=== PATIENT | female | born 1990 | race Caucasian/White ===

== ENCOUNTER 2017-05-27 05:39 | Inpatient (IN) | payer OTHER ==
[2017-05-27] VITALS (9 sets, daily range): BP systolic 114–143; BP diastolic 58–82
[~2017-05-27] VITALS: Ht 167.6 cm; Wt 74.1 kg
[~2017-05-27 05:39] MED LIST: LEVOTHYROXINE75 MCG PO; Motrin PO; Percocet 5/325,Endoc PO
[2017-05-27] MEDS ORDERED: ENDOCET 5-3251 EACH PO (08:21)
[2017-05-27] MEDS ORDERED: IBUPROFEN800 MG PO (08:21)
[2017-05-28] VITALS (7 sets, daily range): BP systolic 112–139; BP diastolic 64–80
[2017-05-28 07:18] LABS: EOSINOPHIL (%) 1.5 % (0-5); EOSINOPHIL COUNT 0.2 K/uL (0-0.3); HEMATOCRIT 26.7 % (36.0-46.0); IMMATURE GRANULOCYTE (%) 0.9 % (0.0-0.7); IMMATURE GRANULOCYTE COUNT 0.1 K/uL; INSTRUMENT ABS NEUTROPHIL CT 6.6 K/uL; LYMPHOCYTE COUNT 3.2 K/uL (1.0-2.8); MCH 29.6 PG (29.0-34.0); MCV 89.9 FL (83-99); MEAN PLAT.VOLUME 9.7 uM^3 (9.5-12.4); MONOCYTE (%) 11.6 % (3-12); MONOCYTE COUNT 1.3 K/uL (0-0.8); NEUTROPHIL (%) 57.7 % (45-76); NEUTROPHIL COUNT 6.6 K/uL (1.8-6.4); PLATELET COUNT 223 K/uL (156-360); RBC DIS.WIDTH-CV 11.6 % (11.8-14.6); RBC DIS.WIDTH-SD 38.2 % (39-53); RED BLOOD COUNT 2.97 M/uL (3.80-5.20); WHITE BLOOD COUNT 11.3 K/uL (4.1-10.2)
[2017-05-29 07:37] VITALS: BP 116/62
[2017-05-29 14:39] VITALS: BP 138/76
[2017-05-30 07:07] VITALS: BP 100/63
[2017-05-30 15:56] VITALS: BP 142/79
[2017-05-30] MEDS ORDERED: DICLOXACILLIN500 MG PO (21:02)
== END 2017-05-30 21:20 | disposition home or self-care (01) | DRG 765 ==
LOC: 2WEST 05:39 → 2SOUTH 09:00 → 2WEST 05-29 22:22
PROVIDERS: Obstetrics & Gynecology
PROC: 10D00Z1 Extraction of Products of Conception, Low, Open Approach (ICD-10-PCS; principal; 2017-05-27)
DX: O34.211 Maternal care for low transverse scar from previous cesarean delivery (principal); O36.5930 Maternal care for other known or suspected poor fetal growth, third trimester, not applicable or unspecified; O99.02 Anemia complicating childbirth; D64.9 Anemia, unspecified; O99.284 Endocrine, nutritional and metabolic diseases complicating childbirth; E03.9 Hypothyroidism, unspecified; Z3A.37 37 weeks gestation of pregnancy; Z37.0 Single live birth
CPT/HCPCS: 36415; 85025; 86900; 86901; 88307; J0690; J1100; J1200; J1885; J2274; J2405; J3010; J7120